=== PATIENT | female | born 1985 | race African-American/Black ===

== ENCOUNTER 2021-02-17 13:14 | Emergency (ER) | payer SELFPAY ==
[2021-02-17] MEDS ORDERED: TETANUS,DIPH,PERTUSS(ACELL) VACCINE 0.5 ML SYRINGE IM ONE (16:42)
[2021-02-17] MEDS ORDERED: LIDOCAINE (1%) 10 MG/1 ML VIAL 20 ML MDV INFILTRATI ONE (16:42)
--- NOTE | 2021-02-17 18:00 | Emergency Department Report ---
- General Chief Complaint: Laceration/Recheck/Suture Stated Complaint: CUTS ON ARM Time Seen by Provider: 02/17/21 15:34 Source: patient Mode of arrival: Ambulatory Limitations: No Limitations - History of Present Illness Initial Comments: Patient is a 35-year-old female presents emergency room with lacerations and abrasions present to the bilateral forearms that occurred just prior to arrival. Patient states that she was cleaning up and was carrying some trash bags and did not realize there was broken glass present in the trash bags which cut her arms. She denies any difficulty moving the arms. She denies any numbness or weakness. She is unsure of her last tetanus immunization. No past medical history. No allergies medications. - Related Data Previous Rx's Medication Instructions Recorded Last Taken Type Neomycin/Bacitracin/Polymyxinb 1 applicatio TP BID #14 oint...g. 02/17/21 Unknown Rx [Triple Antibiotic Ointment] Allergies Allergy/AdvReac Type Severity Reaction Status Date / Time No Known Allergies Allergy Verified 02/17/21 16:47 ED Review of Systems ROS: Stated complaint: CUTS ON ARM Other details as noted in HPI Comment: All other systems reviewed and negative ED Past Medical Hx - Past Medical History Previous Medical History?: Yes Additional medical history: Gallbladder issues - Surgical History Past Surgical History?: No - Medications Home Medications: Home Medications Medication Instructions Recorded Confirmed Last Taken Type Neomycin/Bacitracin/Polymyxinb 1 applicatio TP BID #14 oint...g. 02/17/21 Unknown Rx [Triple Antibiotic Ointment] ED Physical Exam - General Limitations: No Limitations General appearance: alert, in no apparent distress - Head Head exam: Present: atraumatic, normocephalic - Eye Eye exam: Present: normal appearance - ENT ENT exam: Present: mucous membranes moist - Respiratory Respiratory exam: Absent: respiratory distress, accessory muscle use - Extremities Exam Extremities exam: Present: other (neurovascularly intact in the BUE) - Neurological Exam Neurological exam: Present: alert, oriented X3 - Psychiatric Psychiatric exam: Present: normal affect, normal mood - Skin Skin exam: Present: warm, dry, other (there are multiple abrasions present to the bilateral anterior forearms, there are three irregular shaped lacerations present to the left anterior forearm, there is one laceration present to the right anterior forearm, no foreign bodies, no muscle/tendon involvement, FROM Of the BUE) ED Course Vital Signs 02/17/21 02/17/21 14:34 18:49 Temperature 98.5 F Pulse Rate 92 H 79 Respiratory 16 16 Rate Blood Pressure 105/74 Blood Pressure 107/62 [Left] O2 Sat by Pulse 100 100 Oximetry - Laceration /Wound Repair Anterior Arm Wound Location: upper extremity (bilateral anterior forearm) Wound Length (cm): 2 (there are 4 lacerations present) Wound's Depth, Shape: superficial Wound Explored: clean Irrigated w/ Saline (ccs): 500 Betadine Prep?: Yes Anesthesia: 1% Lidocaine Volume Anesthetic (ccs): 10 Wound Debrided: moderate Wound Repaired With: sutures Suture Size/Type: 3:0, proline Number of Sutures: 10 Layer Closure?: No Sterile Dressing Applied?: Yes Progress: Verbal consent obtained by patient All wounds irrigated with saline and thoroughly scrubbed with Betadine, no foreign bodies, no muscle or tendon involvement, 10 cc of 1% lidocaine used for anesthetic to the bilateral forearms, 4-0 Prolene used for skin closure, a total of 10 sutures were placed, patient tolerated well, no complications, bleeding controlled, sterile dressing applied ED Medical Decision Making - Medical Decision Making Patient is a 35-year-old female presents emergency room with lacerations and abrasions present to the bilateral forearms that occurred just prior to arrival. Patient states that she was cleaning up and was carrying some trash bags and did not realize there was broken glass present in the trash bags which cut her arms. She denies any difficulty moving the arms. She denies any numbness or weakness. She is unsure of her last tetanus immunization. No past medical history. No allergies medications. Vitals are normal. On exam:there are multiple abrasions present to the bilateral anterior forearms, there are three irregular shaped lacerations present to the left anterior forearm, there is one laceration present to the right anterior forearm, no foreign bodies, no muscle/tendon involvement, FROM Of the BUE, neurovascularly intact in the bilateral upper extremities. Wounds repaired per procedure note without any complications. Patient given Tdap. Advised patient Please keep areas clean, dry, covered.. Wash with antibacterial soap and water pat dry. No hot tub, no pool, no soaking water. Follow-up with your primary care doctor for examination. Sutures need to be removed in 10 to 14 days. Return to emergency room for new or worse symptoms. Critical care attestation.: If time is entered above; I have spent that time in minutes in the direct care of this critically ill patient, excluding procedure time. ED Disposition Clinical Impression: Abrasions of multiple sites Laceration of arm, left, multiple sites Qualifiers: Encounter type: initial encounter Qualified Code(s): S41.112A - Laceration without foreign body of left upper arm, initial encounter Laceration of right forearm Qualifiers: Encounter type: initial encounter Qualified Code(s): S51.811A - Laceration without foreign body of right forearm, initial encounter Disposition: TO HOME OR SELFCARE Is pt being admited?: No Does the pt Need Aspirin: No Condition: Stable Instructions: Sutures, Kiran, or Adhesive Wound Closure, [id number] Additional Instructions: Please keep areas clean, dry, covered.. Wash with antibacterial soap and water pat dry. No hot tub, no pool, no soaking water. Follow-up with your primary care doctor for examination. Sutures need to be removed in 10 to 14 days. Return to emergency room for new or worse symptoms. Prescriptions: Neomycin/Bacitracin/Polymyxinb [Triple Antibiotic Ointment] 1 applicatio TP BID #14 oint...g. Referrals: PRIMARY CARE, [Primary Care Provider] - 3-5 Days Forms: Work/School Release Form(ED) Time of Disposition: 18:04 Print Language: RWANDAN
[2021-02-17 18:50] VITALS: BP 107/62
== END 2021-02-17 19:00 | disposition home or self-care (01) ==
LOC: ED 13:14
DX: S51.811A Laceration without foreign body of right forearm, initial encounter (principal); S51.812A Laceration without foreign body of left forearm, initial encounter; Z79.899 Other long term (current) drug therapy; W26.8XXA Contact with other sharp object(s), not elsewhere classified, initial encounter; Y93.89 Activity, other specified; Y92.89 Other specified places as the place of occurrence of the external cause; Y99.8 Other external cause status
CPT/HCPCS: 90471; 90715; 99281